=== PATIENT | male | born 1980 | race Two or more races ===

== ENCOUNTER 2019-03-27 08:18 | Emergency (ER) | payer MEDICAID ==
[~2019-03-27] VITALS: Ht 175.3 cm; Wt 91.6 kg
[2019-03-27 08:21] VITALS: Ht 175.3 cm; Wt 91.6 kg
[2019-03-27 09:16] VITALS: BP 136/84
== END 2019-03-27 09:16 | disposition home or self-care (01) ==
LOC: ED 08:18
DX: L50.0 Allergic urticaria (principal); E66.9 Obesity, unspecified; Z68.29 Body mass index [BMI] 29.0-29.9, adult
CPT/HCPCS: J1200; J2930